=== PATIENT | female | born 1945 | race Caucasian/White ===

== ENCOUNTER 2016-11-04 11:00 | Day surgery (SDC) | payer MEDICARE, BC ==
[~2016-11-04 11:00] MED LIST: Lactated Ringers 1,000 ML IV SCH; Sodium Chloride 0.9% 10 ML Syringe FLUSH PRN
[2016-11-04] MEDS ORDERED: fentaNYL 100 MCG/2 ML SDV ONE ×2 (11:51→12:06)
--- NOTE | 2016-11-04 11:51 | PCM.HPR ---
H & P Addendum review - H & P Addendum Review Date of Original H & P: 10/28/16 Date Reviewed: 11/04/16 Patient was examined: No Changes (ok to proceed with EGD and colonoscopy)
[2016-11-04] MEDS ORDERED: Propofol 200 MG/20 ML SDV ONE ×2 (11:52→12:06)
[2016-11-04] MEDS ORDERED: Midazolam 1 MG/ML 2 ML SDV ONE ×2 (11:52→12:06)
[2016-11-04] MEDS ORDERED: Lidocaine 2% 5 ML SDV ONE (12:06)
--- NOTE | 2016-11-04 12:30 | PCM.OPNOTE ---
- General Post-Op/Procedure Note Date of Surgery/Procedure: 11/04/16 Operative Procedure(s): EGD. Colonoscopy Findings: Small HH Pre Op Diagnosis: GERD. Diverticulosis Post-Op Diagnosis: Same Anesthesia Technique: RENUKA Primary Surgeon: Clinton Nunez Anesthesia Provider: Qiana Hollis Complications: None Condition: Good
[2016-11-04 15:04] VITALS: BP 137/68
--- NOTE | 2016-11-05 07:58 | OR ---
Date of Procedure: 11/04/2016 PREOPERATIVE DIAGNOSES: 1. Gastroesophageal reflux disease with hiatal hernia. 2. Diverticulosis. POSTOPERATIVE DIAGNOSES: 1. Gastroesophageal reflux disease with hiatal hernia. 2. Diverticulosis. PROCEDURES: 1. EGD. 2. Colonoscopy. ANESTHESIA: IV sedation. PROCEDURE IN DETAIL: Patient was brought to procedure room, where she was placed on her left side and IV sedation administered. Digital rectal exam was performed which was normal. Colonoscope was inserted and advanced to the level of the cecum without difficulty. Cecal position was confirmed by identifying the appendiceal lumen and ileocecal valve. Prep was good and surfaces were well visualized. Upon withdrawing the scope, the ascending, transverse, and descending colon had some scattered diverticula. Throughout the sigmoid colon had multiple diverticula present. Rectum was normal and retroflexion was normal. Air was removed. The scope withdrawn. Patient tolerated this portion of the procedure well. Upper endoscopy was performed after oral bite block was placed. An upper endoscope advanced into the esophagus under direct vision without difficulty. Vocal cords were viewed and were normal. The scope was advanced to the 3rd portion of the duodenum. Duodenum and pylorus were normal. Antrum and body of the stomach were normal. Retroflexion reveals a small hiatal hernia. Squamocolumnar junction appears normal. I do not see any evidence of reflux esophagitis. Air was removed from the stomach and the scope withdrawn through the remaining esophagus which appears normal. The patient tolerated the procedure well and returned to recovery in stable condition. Recommend routine colon screening in 10 years. AL PEREZ MD /[id number]
== END 2016-11-04 13:22 | disposition home or self-care (01) ==
LOC: LL.SDS 11:00
PROVIDERS: ATTEND Surgery
DX: K21.9 Gastro-esophageal reflux disease without esophagitis (principal); K44.9 Diaphragmatic hernia without obstruction or gangrene; K57.30 Diverticulosis of large intestine without perforation or abscess without bleeding; E11.9 Type 2 diabetes mellitus without complications; E78.5 Hyperlipidemia, unspecified; E87.6 Hypokalemia; J30.2 Other seasonal allergic rhinitis; Z79.84 Long term (current) use of oral hypoglycemic drugs; Z79.82 Long term (current) use of aspirin; Z79.899 Other long term (current) drug therapy; Z98.890 Other specified postprocedural states
CPT/HCPCS: 43235; 45378; J7120; 00740; J2250; J2704; J3010